=== PATIENT | male | born 1955 | race Caucasian/White ===

== ENCOUNTER 2018-11-08 17:53 | Emergency (ER) | payer MEDICARE ==
[2018-11-08 17:59] VITALS: BP 149/82
[2018-11-08] MEDS ORDERED: NS(*) 0.9% 1000 ML BAG 1,000 ML IV ONE (18:40)
[2018-11-08 18:58] LABS: PLATELET COUNT, AUTOMATED 212 K/uL (150-450)
[2018-11-08] MEDS ORDERED: cefTRIAXone 1 GM VIAL IVP ONE (19:05)
[2018-11-08] MEDS ORDERED: PHENAZOPYRIDINE 200 MG TAB PO ONE (19:20)
--- NOTE | 2018-11-08 19:31 | ER Report ---
History and Physical Time Seen By MD: 18:00 Hx. of Stated Complaint: STATES CLEAR STICKY DISCHARGE FROM ANUS AND DIFFICULTY AND BURNING WITH URINATION. THIS HAS ALL STARTED WITHIN THE PAST 2 DAYS HPI/ROS CHIEF COMPLAINT: urinary symptoms HISTORY OF PRESENT ILLNESS: 63-year-old male presents with burning, frequency, hesitation with urination. He began to have malaise and discomfort the day before yesterday, followed by urinary symptoms yesterday. He feels lower abdominal bloating. He has had chills. He has had mild nausea but no vomiting. He also complains of sticky stool or discharge coming from rectum. Patient d enies unprotected intercourse. He denies anal intercourse. He states he has had urine infection before but it is been a few years. He does not have a urologist. He has not attempted any treatment. Patient also states that there has been a cyst on the left testicle for years but this feels slightly larger and more uncomfortable. REVIEW OF SYSTEMS: Constitutional: above Eyes: No discharge. ENT: No sore throat. Cardiovascular: No chest pain, no palpitations. Respiratory: No cough, no shortness of breath. Gastrointestinal: above Genitourinary: No hematuria; dysuria as above Musculoskeletal: chronic back discomfort Skin: No rashes. Neurological: No headache. Remainder of the 14 system rev: Yes Allergies: Coded Allergies: prednisone (Verified Allergy, Intermediate, 11/08/18) pregabalin (Verified Allergy, Intermediate, 11/08/18) Home Meds Active Scripts Phenazopyridine Hcl (PHENAZOPYRIDINE HCL) 200 Mg Tablet, 200 MG PO TID for 3 Days, #6 TAB Prov:JERMAINE RODRIGUEZ MD 11/08/18 Cephalexin 500 Mg Tab (KEFLEX 500 MG TAB) 500 Mg Tablet, 500 MG PO Q12H for 10 Days, #20 TAB Prov:JERMAINE RODRIGUEZ MD 11/08/18 Reviewed Nurses Notes: Yes Constitutional Vital Sign - Last 24 Hours 11/08/18 17:59 Temp 98.0 Pulse 102 Resp 20 B/P (MAP) 149/82 Pulse Ox 94 O2 Delivery Room Air Physical Exam General Appearance: The patient is alert, has no immediate need for airway protection and no signs of toxicity. [ ] Eyes: Pupils equal and round no pallor or injection. ENT, Mouth: Mucous membranes are moist. Respiratory: There are no retractions, lungs are clear to auscultation. Cardiovascular: Regular rate and rhythm. Gastrointestinal: mild suprapubic tenderness. No RLQ ttp, otherwisen nl. - testicles; nl lie, no testicle ttp. Left supratesticular soft mass, mild ttp. Rectal; nl tone, prostate not enlarged, boggy, or ttp Neurological: alert, no gross focal deficit Skin: Warm and dry, no rashes. Musculoskeletal: Extremities are nontender, nonswollen and have full range of motion. DIFFERENTIAL DIAGNOSIS: After history and physical exam differential diagnosis was considered for uti, pyelonpehrpitis, sepsis, prostatitis, malignancy, torsion, or other emergent etiology of symptoms. Medical Decision Making Data Points Result Diagram: 11/08/18180611/08/181806 Laboratory Hematology Test 11/08/18 18:02 11/08/18 18:07 Urine Color Yellow Urine Clarity Cloudy Urine pH 6.0 pH (4.8-9.5) Urine Specific Helper 1.011 Urine Protein Negative mg/dL (NEGATIVE) Urine Glucose (UA) Negative mg/dL (NEGATIVE) Urine Ketones Negative mg/dL (NEGATIVE) Urine Blood Small (NEGATIVE) Urine Nitrite Positive (NEGATIVE) Urine Bilirubin Negative (NEGATIVE) Urine Urobilinogen Negative mg/dL (0.2-1.9) Urine Leukocyte Esterase Large (NEGATIVE) Urine RBC 10 /HPF (0-2/HPF) Urine WBC 872 /HPF (0-5/HPF) Urine WBC Clumps Mod /HPF Urine Squamous Epithelial Cells None /LPF (</=FEW) Urine Bacteria Few /HPF (NONE-FEW) Urine Mucus Few /HPF (NONE-FEW) Red Blood Count 4.99 M/uL (4.00-5.60) Mean Corpuscular Volume 91.9 fL (80.0-96.0) Mean Corpuscular Hemoglobin 31.7 pg (26.0-33.0) Mean Corpuscular Hemoglobin Concent 34.5 g/dL (32.0-36.0) Red Cell Distribution Width 14.4 % (11.5-14.5) Mean Platelet Volume 9.1 fL (7.2-11.1) Neutrophils (%) (Auto) 83.2 % (39.4-72.5) Lymphocytes (%) (Auto) 7.2 % (17.6-49.6) Monocytes (%) (Auto) 9.1 % (4.1-12.4) Eosinophils (%) (Auto) 0.1 % (0.4-6.7) Basophils (%) (Auto) 0.4 % (0.3-1.4) Nucleated RBC Relative Count (auto) 0.0 /100WBC Neutrophils # (Auto) 18.6 K/uL (2.0-7.4) Lymphocytes # (Auto) 1.6 K/uL (1.3-3.6) Monocytes # (Auto) 2.0 K/uL (0.3-1.0) Eosinophils # (Auto) 0.0 K/uL (0.0-0.5) Basophils # (Auto) 0.1 K/uL (0.0-0.1) Nucleated RBC Absolute Count (auto) 0.01 K/uL Sodium Level 134 mmol/L (137-145) Potassium Level 3.6 mmol/L (3.5-5.0) Chloride Level 101 mmol/L (98-107) Carbon Dioxide Level 23 mmol/L (22-30) Blood Urea Nitrogen 10 mg/dl (9-21) Creatinine 1.00 mg/dl (0.66-1.25) Glomerular Filtration Rate Calc > 60.0 Random Glucose 112 mg/dl (75-110) Calcium Level 9.0 mg/dl (8.4-10.2) Total Bilirubin 1.1 mg/dl (0.2-1.3) Aspartate Amino Transf (AST/SGOT) 17 U/L (0-35) Alanine Aminotransferase (ALT/SGPT) 24 U/L (0-56) Alkaline Phosphatase 77 U/L (0-126) Total Protein 7.0 g/dl (6.3-8.2) Albumin 3.9 g/dl (3.5-5.0) Chemistry Test 11/08/18 18:02 11/08/18 18:07 Urine Color Yellow Urine Clarity Cloudy Urine pH 6.0 pH (4.8-9.5) Urine Specific Helper 1.011 Urine Protein Negative mg/dL (NEGATIVE) Urine Glucose (UA) Negative mg/dL (NEGATIVE) Urine Ketones Negative mg/dL (NEGATIVE) Urine Blood Small (NEGATIVE) Urine Nitrite Positive (NEGATIVE) Urine Bilirubin Negative (NEGATIVE) Urine Urobilinogen Negative mg/dL (0.2-1.9) Urine Leukocyte Esterase Large (NEGATIVE) Urine RBC 10 /HPF (0-2/HPF) Urine WBC 872 /HPF (0-5/HPF) Urine WBC Clumps Mod /HPF Urine Squamous Epithelial Cells None /LPF (</=FEW) Urine Bacteria Few /HPF (NONE-FEW) Urine Mucus Few /HPF (NONE-FEW) White Blood Count 22.3 k/uL (4.5-11.0) Red Blood Count 4.99 M/uL (4.00-5.60) Hemoglobin 15.8 g/dL (14.0-18.0) Hematocrit 45.9 % (42.0-52.0) Mean Corpuscular Volume 91.9 fL (80.0-96.0) Mean Corpuscular Hemoglobin 31.7 pg (26.0-33.0) Mean Corpuscular Hemoglobin Concent 34.5 g/dL (32.0-36.0) Red Cell Distribution Width 14.4 % (11.5-14.5) Platelet Count 212 K/uL (150-450) Mean Platelet Volume 9.1 fL (7.2-11.1) Neutrophils (%) (Auto) 83.2 % (39.4-72.5) Lymphocytes (%) (Auto) 7.2 % (17.6-49.6) Monocytes (%) (Auto) 9.1 % (4.1-12.4) Eosinophils (%) (Auto) 0.1 % (0.4-6.7) Basophils (%) (Auto) 0.4 % (0.3-1.4) Nucleated RBC Relative Count (auto) 0.0 /100WBC Neutrophils # (Auto) 18.6 K/uL (2.0-7.4) Lymphocytes # (Auto) 1.6 K/uL (1.3-3.6) Monocytes # (Auto) 2.0 K/uL (0.3-1.0) Eosinophils # (Auto) 0.0 K/uL (0.0-0.5) Basophils # (Auto) 0.1 K/uL (0.0-0.1) Nucleated RBC Absolute Count (auto) 0.01 K/uL Glomerular Filtration Rate Calc > 60.0 Calcium Level 9.0 mg/dl (8.4-10.2) Total Bilirubin 1.1 mg/dl (0.2-1.3) Aspartate Amino Transf (AST/SGOT) 17 U/L (0-35) Alanine Aminotransferase (ALT/SGPT) 24 U/L (0-56) Alkaline Phosphatase 77 U/L (0-126) Total Protein 7.0 g/dl (6.3-8.2) Albumin 3.9 g/dl (3.5-5.0) Urinalysis Test 11/08/18 18:02 Urine Color Yellow Urine Clarity Cloudy Urine pH 6.0 pH (4.8-9.5) Urine Specific Helper 1.011 Urine Protein Negative mg/dL (NEGATIVE) Urine Glucose (UA) Negative mg/dL (NEGATIVE) Urine Ketones Negative mg/dL (NEGATIVE) Urine Blood Small (NEGATIVE) Urine Nitrite Positive (NEGATIVE) Urine Bilirubin Negative (NEGATIVE) Urine Urobilinogen Negative mg/dL (0.2-1.9) Urine Leukocyte Esterase Large (NEGATIVE) Urine RBC 10 /HPF (0-2/HPF) Urine WBC 872 /HPF (0-5/HPF) Urine WBC Clumps Mod /HPF Urine Squamous Epithelial Cells None /LPF (</=FEW) Urine Bacteria Few /HPF (NONE-FEW) Urine Mucus Few /HPF (NONE-FEW) ED Course/Re-evaluation ED Course 63 m presents with symptoms c/w uti/pyelo. He does not have exam findings c/w prostatitis. IV hydration, rocephin administered. On reassessment ,pt is comfortable, tolerating by mouth. We discussed continued monitoring versus discharge. At this point, patient is comfortable with discharge. He understands strict return precautions. 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 Decision to Disposition Date: Nov 08, 2018 Decision to Disposition Time: 20:05 Depart Departure Latest Vital Signs Vital Signs Date Time Temp Pulse Resp B/P (MAP) Pulse Ox O2 Delivery O2 Flow Rate FiO2 11/08/18 17:59 98.0 102 20 149/82 94 Room Air Impression: Primary Impression: Urinary tract infection Condition: Improved Disposition: HOME OR SELF-CARE New Scripts Phenazopyridine Hcl (PHENAZOPYRIDINE HCL) 200 Mg Tablet 200 MG PO TID for 3 Days, #6 TAB Prov: JERMAINE RODRIGUEZ MD 11/08/18 Cephalexin 500 Mg Tab (KEFLEX 500 MG TAB) 500 Mg Tablet 500 MG PO Q12H for 10 Days, #20 TAB Prov: JERMAINE RODRIGUEZ MD 11/08/18 Patient Instructions: Urinary Tract Infection in Men (DC) Additional Instructions: As we discussed, please return immediately if you are feeling worse, have reaction to mediation, uncontrolled pain, or any concerns. Problem Qualifiers Primary Impression: Urinary tract infection Urinary tract infection type: acute cystitis Hematuria presence: without hematuria Qualified Codes: N30.00 - Acute cystitis without hematuria JERMAINE RODRIGUEZ MD Nov 08, 2018 19:31
[2018-11-08] MEDS ORDERED: PHEN200T32 PO (20:09)
[2018-11-08] MEDS ORDERED: CEPH500T7 PO (20:09)
[2018-11-08] MEDS ORDERED: ACET/HYDROC 5/325MG TH ER ONLY 2 TAB/BOTTLE PO ONE (20:10)
[2018-11-08] MEDS ORDERED: CEPHALEXIN 500 MG CAP TH 2 CAP/BOTTLE PO ONE (20:10)
== END 2018-11-08 20:30 | disposition home or self-care (01) ==
LOC: ER 18:14
DX: N30.00 Acute cystitis without hematuria (principal)
CPT/HCPCS: 81001; 85025; 87077; 87088; 87186; 96361; 96374; 99283; A9270; J0696; J7030; 82040; 82247; 82310; 82374; 82435; 82565; 82947; 84075; 84132; 84155; 84295; 84450; 84460; 84520